=== PATIENT | female | born 2000 | race African-American/Black ===

== ENCOUNTER 2022-08-28 11:15 | Emergency (ER) | payer OTHER, SELFPAY ==
[2022-08-28 11:18] VITALS: BP 122/85; PULSE 116; RESP 18; TEMP 36.6; O2SAT 98
[2022-08-28 11:57] LABS: Strep Group A RT-PCR DETECTED (Negative)
[2022-08-28 12:09] VITALS: O2SAT 98
[2022-08-28 12:11] VITALS: BP 128/88; PULSE 100; RESP 18; O2SAT 98
[2022-08-28 12:14] LABS: Influenza A QL RT-PCR Negative (Negative); Influenza B QL RT-PCR Negative (Negative); SARS-CoV-2 RNA PCR Negative
--- NOTE | 2022-08-28 12:32 | ED.GENADULT ---
HPI - General Adult General Chief complaint: Upper Respiratory Infection Stated complaint: ST, bodyaches Time Seen by Provider: 08/28/22 12:03 Source: RN notes reviewed History of Present Illness HPI narrative: Patient presents emergency department from home for upper respiratory infection symptoms. Patient states symptoms began 2 days ago. States she has had a sore throat that is painful and worse with swallowing. States has been associated with a mild cough this been nonproductive. She denies any ear pain or rhinorrhea she denies any chest pain or shortness of breath. States she has been having some body aches but denies any fever states she has not taken anything for the symptoms denies any chance of Related Data Allergies Allergy/AdvReac Type Severity Reaction Status Date / Time No Known Allergies Allergy Unverified 08/28/22 12:11 Review of Systems Review of Systems: Gen.: Denies fevers reports body aches ENT: See HPI Respiratory: Denies shortness of breath reports nonproductive cough CV: Denies chest pain or palpitations GI: Denies abdominal pain nausea, emesis or diarrhea Musculoskeletal: Denies back pain or muscle pain Neuro: Denies numbness, tingling, weakness or focal weakness Skin: Denies rash Except as documented, all other systems reviewed and negative PMFSH Past Medical History Medical History (Updated 08/28/22 @ 12:35 by Ernst Browne DO) Patient denies significant medical history Surgical History Surgical History (Updated 05/18/19 @ 01:03 by Amanda Gabriel) H/O inguinal hernia repair History of tonsillectomy Social History Social History Smoking status: Never smoker Exam Narrative: APPEARANCE: No acute distress, nontoxic, resting in bed EYES: EOMI HEENT: Normocephalic, atraumatic, TMs clear bilaterally, nares patent oromucosa moist erythema the posterior pharynx bilateral tonsils no exudate seen uvula midline no trismus RESPIRATORY: No respiratory distress Clear to auscultation bilaterally with no rhonchi wheezing or rales. CARDIOVASCULAR: Regular rate and rhythm without murmurs rubs or gallops. ABDOMINAL: Soft, nontender, nondistended, no rebound or guarding MUSCULOSKELETAl: Moves all extremities. No clubbing, cyanosis or edema. NEURO: Awake and alert. Following commands, speech normal, no focal deficits SKIN:: Warm, dry. No rashes lesions or abrasions PSYCHIATRIC: Normal affect/mood, Course Course Emergency Course: Discussed with patient results of workup and diagnosis. Discussed need for follow-up with primary care, proper use of medication, and reasons to return to the emergency department. Patient understands and agrees to current treatment plan Vital Signs Vital signs: Vital Signs Temperature 97.9 F 08/28/22 11:18 Pulse Rate 116 H 08/28/22 11:18 Respiratory Rate 18 08/28/22 11:18 Blood Pressure 122/85 08/28/22 11:18 Pulse Oximetry 98 08/28/22 11:18 Temperature 97.9 F 08/28/22 11:18 Pulse Rate 100 08/28/22 12:11 Respiratory Rate 18 08/28/22 12:11 Blood Pressure 128/88 08/28/22 12:11 Pulse Oximetry 98 08/28/22 12:11 Oxygen Delivery Room Air 08/28/22 12:09 Medical Decision Making [facility] Narrative Medical decision making narrative: Patient presents for upper respiratory and symptoms for the past 2 days sore throat mild cough this been nonproductive. On exam erythema the posterior pharynx lung clear to auscultation bilaterally patient had a group A strep test that is positive we will start antibiotics influenza and COVID are negative. Patient tolerating own secretions shared medical decision making the patient comfortable discharge will start antibiotics Vital Signs Vital Signs: Vital Signs Temperature 97.9 F 08/28/22 11:18 Pulse Rate 116 H 08/28/22 11:18 Respiratory Rate 18 08/28/22 11:18 Blood Pressure 122/85 08/28/22 11:18 Pulse Oximetry 98
[2022-08-28] MEDS: IBUPROFEN 600 MG TABLET PO (12:50)
[2022-08-28] MEDS: AMOXICILLIN 500 MG CAPSULE PO (12:51)
== END 2022-08-28 12:54 | disposition home or self-care (01) ==
PROVIDERS: Physician Assistant; Emergency Provider Emergency Medicine; PCP Family Medicine
DX: J02.0 Streptococcal pharyngitis (principal); Z20.822 Contact with and (suspected) exposure to COVID-19
CPT/HCPCS: 87636; 87651; 99283; A9270